=== PATIENT | female | born 1990 | race Caucasian/White ===

== ENCOUNTER 2020-06-14 04:29 | Emergency (ER) | payer OTHER, MEDICAID ==
[~2020-06-14] VITALS: Ht 165.1 cm; Wt 60.3 kg
[2020-06-14 04:41] VITALS: Ht 165.1 cm; Wt 60.3 kg
[2020-06-14 08:00] VITALS: BP 136/95
== END 2020-06-14 08:00 | disposition home or self-care (01) ==
LOC: ED 04:29
DX: S06.0X0A Concussion without loss of consciousness, initial encounter (principal); S93.401A Sprain of unspecified ligament of right ankle, initial encounter; R11.0 Nausea; V49.49XA Driver injured in collision with other motor vehicles in traffic accident, initial encounter; Y93.I9 Activity, other involving external motion; Y92.488 Other paved roadways as the place of occurrence of the external cause; Y99.8 Other external cause status